=== PATIENT | female | born 1960 | race Caucasian/White ===

== ENCOUNTER 2023-03-26 13:50 | Outpatient (CLI) | payer MEDICARE, MEDICAID, SELFPAY | END 2023-03-26 13:51 | disposition home or self-care (01) | LOC: AMB 04-06 04:15 | PROVIDERS: Visit Provider Emergency Medicine Emergency Medical Services | DX: R06.09 Other forms of dyspnea (principal); J44.1 Chronic obstructive pulmonary disease with (acute) exacerbation | CPT/HCPCS: A0425; A0429 ==

== ENCOUNTER 2023-03-26 18:03 | Outpatient (CLI) | payer MEDICARE, MEDICAID, SELFPAY | END 2023-03-26 18:04 | disposition home or self-care (01) | LOC: AMB 04-06 04:19 | PROVIDERS: Visit Provider Emergency Medicine Emergency Medical Services | DX: R06.09 Other forms of dyspnea (principal) | CPT/HCPCS: A0425; A0427; A0428; A0429 ==

== ENCOUNTER 2023-05-08 10:39 | Outpatient (CLI) | payer MEDICARE, MEDICAID, SELFPAY ==
--- NOTE | 2023-05-08 11:00 | CRLHL7_ITS ---
For Patients: As a result of the Century Cures Act, medical imaging exams and procedure reports are released immediately into your electronic medical record. You may view this report before your referring provider. If you have questions, please contact your health care provider. INDICATION: Pneumonia confirmed on bronchoscopy. COMPARISON: 03/26/2023. TECHNIQUE: Noncontrast CT of the chest. FINDINGS: Interval marked improvement in consolidation previously seen in the right upper and middle lobes. Minor opacities elsewhere such as in the right lower lobe have completely resolved. The only remaining opacities are consolidation in the right middle lobe, which has areas of minor bronchiectasis and evolving platelike atelectasis, which extends into the right upper lobe. Minor coarse reticulation also seen in this area along the pleura. Interval resolution of pleural effusions as well. The central airways are now patent. Coronary artery calcifications. Thoracic aortic calcifications without thoracic aortic aneurysm. Adrenal glands appear unremarkable. The bones are stable. No suspicious adenopathy. IMPRESSION: Marked improvement in previous consolidative opacities likely representing near complete resolution of pneumonia. Minor areas of platelike consolidation/atelectasis in the right middle lobe and minor portions of the right upper lobe where there is minor bronchiectasis remaining. Please note that all CT scans at this facility use dose modulation, iterative reconstruction, and/or weight-based dosing when appropriate to reduce radiation dose to as low as reasonably achievable. Dictated by Jose Hamm MD @ 05/09/2023 8:39:34 PM (Electronically Signed)
== END 2023-05-08 10:40 | disposition home or self-care (01) ==
LOC: CT 10:42
PROVIDERS: PCP Student in an Organized Health Care Education/Training Program; Visit Provider Internal Medicine
DX: J18.9 Pneumonia, unspecified organism (principal)
CPT/HCPCS: 71250

== ENCOUNTER 2023-07-31 08:48 | Outpatient (CLI) | payer MEDICARE, MEDICAID, SELFPAY ==
--- NOTE | 2023-07-31 09:00 | CRLHL7_ITS ---
For Patients: As a result of the Century Cures Act, medical imaging exams and procedure reports are released immediately into your electronic medical record. You may view this report before your referring provider. If you have questions, please contact your health care provider. Indication: FOLLOW UP ROUNDED AREA OF LIKELY ATELECTASIS Technique: Noncontrast CT chest. Supine inspiration high-resolution images also acquired. Please note that all CT scans at this facility use dose modulation, iterative reconstruction, and/or weight-based dosing when appropriate to reduce radiation dose to as low as reasonably achievable. Comparison: 05/08/2023 Findings: Stable upper limits of normal lymph node anterior to the renetta. Dense calcifications in the coronary arteries. Upper abdomen is unremarkable. Visualized thyroid is normal. Stable subcentimeter axillary lymph nodes. Chronic deformity of the left posterior 11th rib. Chronic deformity of the right posterior 8th rib. Improved aeration within the posterior aspect of the right middle lobe compared to the prior exam. Residual density with air bronchograms is located within the right middle lobe along with adjacent curvilinear areas of stranding. No suspicious pulmonary nodule. No pleural effusion or pneumothorax. Impression: Improved aeration within the right middle lobe with residual atelectasis/scarring. No pulmonary fibrosis. No suspicious nodules. Please note that all CT scans at this facility use dose modulation, iterative reconstruction, and/or weight-based dosing when appropriate to reduce radiation dose to as low as reasonably achievable. Dictated by Brady Acuna MD @ 07/31/2023 11:13:32 AM (Electronically Signed)
== END 2023-07-31 08:49 | disposition home or self-care (01) ==
LOC: CT 08:49
PROVIDERS: PCP Student in an Organized Health Care Education/Training Program; Visit Provider Internal Medicine
DX: J98.11 Atelectasis (principal)
CPT/HCPCS: 71250

== ENCOUNTER 2023-11-09 08:15 | Outpatient (RCR) | payer MEDICARE, MEDICAID, SELFPAY | END 2023-11-16 08:04 | disposition home or self-care (01) | PROVIDERS: PCP Student in an Organized Health Care Education/Training Program; Visit Provider Student in an Organized Health Care Education/Training Program | DX: M17.0 Bilateral primary osteoarthritis of knee (principal); M25.561 Pain in right knee; M25.562 Pain in left knee; M62.81 Muscle weakness (generalized); Z51.89 Encounter for other specified aftercare | CPT/HCPCS: 97110; 97140; 97161 ==

== ENCOUNTER 2024-04-29 11:15 | Outpatient (RCR) | payer MEDICARE, MEDICAID, SELFPAY | END 2024-07-16 15:22 | disposition home or self-care (01) | PROVIDERS: PCP Student in an Organized Health Care Education/Training Program; Visit Provider Student in an Organized Health Care Education/Training Program | DX: M54.41 Lumbago with sciatica, right side (principal); Z51.89 Encounter for other specified aftercare | CPT/HCPCS: 97110; 97161 ==

== ENCOUNTER 2024-05-24 07:38 | Outpatient (CLI) | payer MEDICARE, MEDICAID, SELFPAY ==
--- NOTE | 2024-05-24 08:57 | W.ANESCHARGE ---
Anesthesia Charges Start Date/Time Anesthesia Start Date: 05/24/24 Anesthesia Start Time: 07:17 Stop Date/Time Anesthesia Stop Date: 05/24/24 Anesthesia Stop Time: 08:53
--- NOTE | 2024-05-24 09:48 | W.ANESCHARGE ---
Anesthesia Charges Start Date/Time Anesthesia Start Date: 05/24/24 Anesthesia Start Time: 08:18 Stop Date/Time Anesthesia Stop Date: 05/24/24 Anesthesia Stop Time: 08:53
--- NOTE | 2024-05-24 09:57 | W.ANESCHARGE ---
Anesthesia Charges Start Date/Time Anesthesia Start Date: 05/24/24 Anesthesia Start Time: 08:18 Stop Date/Time Anesthesia Stop Date: 05/24/24 Anesthesia Stop Time: 08:53
== END 2024-05-24 07:39 | disposition home or self-care (01) ==
LOC: OP CLINIC 07:38
PROVIDERS: PCP Student in an Organized Health Care Education/Training Program; Visit Provider Internal Medicine Gastroenterology
DX: K63.5 Polyp of colon (principal); Z86.010 Personal history of colon polyps
CPT/HCPCS: 00811; 45385; 88305; J2704